=== PATIENT | male | born 1970 | race Caucasian/White ===

== ENCOUNTER 2018-12-27 02:12 | Emergency (ER) | payer OTHER ==
[2018-12-27 02:18] VITALS: RESP 16; TEMP 98.2
--- NOTE | 2018-12-27 03:13 | XR ---
EXAM: XR Left Ankle Complete, 3 or More Views CLINICAL HISTORY: ITS.REASON XR Reason: Pain TECHNIQUE: Frontal, lateral and oblique views of the left ankle. COMPARISON: No relevant prior studies available. IMPRESSION: Ankle joint is intact. Tibia, fibula, and talus is intact. Comminuted fracture of the Calcaneus.
--- NOTE | 2018-12-27 03:14 | XR ---
EXAM: XR Left Foot Complete, 3 or More Views CLINICAL HISTORY: ITS.REASON XR Reason: Pain TECHNIQUE: Frontal, lateral and oblique views of the left foot. COMPARISON: No relevant prior studies available. IMPRESSION: Comminuted fracture of the calcaneus.
[2018-12-27] MEDS ORDERED: MORPHINE SULFATE 4 MG/ML SYRINGE IM STA (03:20)
[2018-12-27 03:30] VITALS: PULSE 71
--- NOTE | 2018-12-27 04:07 | ED ---
Lower Extremity Injury HPI - General Source: patient, EMS Mode of arrival: EMS Limitations: no limitations <Lulu Mobley - Last Filed: 12/27/18 04:57> <Seema Mendoza - Last Filed: 12/27/18 06:41> - General Chief Complaint: Extremity Injury, Lower Stated Complaint: Foot Injury Time Seen by Provider: 12/27/18 02:26 - History of Present Illness Initial Comments: 48-year-old male who denies past medical history presenting today for chief complaint of left heel pain. Patient states he was diagnosed a day ago with a calcaneus fracture. He states he jumped from a 12 foot ladder landing on his feet. Patient states that they did obtain x-rays of his lower back at the emergency department, he states that he was not told there was any abnormalities. Patient states he has increasing pain in his left heel. He states he was given a prescription for [place] 5 and told to follow-up with oral surgery after being placed in a splint and told to nonweight bear. Patient has crutches and room. Patient denies any numbness to the loss sensation. Patient does admit to left foot swelling. Patient has bulky Bradshaw splint in place. Patient presented today for increasing left foot pain. Remaining review of systems negative, patient denies any recent fever, chills, shortness of breath, chest pain, , abdominal pain, nausea or vomiting, numbness or tingling, dysuria or hematuria, constipation or diarrhea, headaches or visual changes, or any other complaints. (Lulu Mobley) - Related Data Previous Rx's Medication Instructions Recorded HYDROcodone/APAP 7.5-325MG [[place] 1 tab PO Q6HR PRN 3 Days #12 tab 12/27/18 7.5-325] Allergies Allergy/AdvReac Type Severity Reaction Status Date / Time No Known Allergies Allergy Verified 12/27/18 02:36 Review of Systems ROS Other: All systems not noted in ROS Statement are negative. <Lulu Mobley - Last Filed: 12/27/18 04:57> ROS Other: All systems not noted in ROS Statement are negative. <Seema Mendoza - Last Filed: 12/27/18 06:41> ROS Statement: Those systems with pertinent positive or pertinent negative responses have been documented in the HPI. Past Medical History History of Any Multi-Drug Resistant Organisms: None Reported Past Surgical History: Appendectomy, Hernia Repair Additional Past Surgical History / Comment(s): vasectomy Smoking Status: Current every day smoker Past Alcohol Use History: None Reported Past Drug Use History: Marijuana <Lulu Mobley - Last Filed: 12/27/18 04:57> General Exam Limitations: no limitations <Lulu Mobley L - Last Filed: 12/27/18 04:57> <MendozaBrendonSeema P - Last Filed: 12/27/18 06:41> - General Exam Comments Initial Comments: General: The patient is awake and alert, in no distress, and does not appear acutely ill. Eye: Pupils are equal, round and reactive to light, extra-ocular movements are intact. No nystagmus. There is normal conjunctiva bilaterally. No signs of icterus. Ears, nose, mouth and throat: There are moist mucous membranes and no oral lesions. Cardiovascular: There is a regular rate and rhythm. No murmur, rub or gallop is appreciated. Respiratory: Lungs are clear to auscultation, respirations are non-labored, breath sounds are equal. No wheezes, stridor, rales, or rhonchi. Musculoskeletal: Inspection of the left foot revealed swelling, compressible quadrants. Warm to palpation. Ecchymosis. Patient tender with palpation diffusely over left foot. +2 deep P pulses. Patient refuses to fully range at the left ankle secondary to pain, I did not stress this given known injury. She is able to wiggle all 5 digits of the left foot. Patient has full sensation in both proximal distal to injury. Capillary refill less than 2 seconds. No pain to palpation of the proximal tibia and fibula. No gross deformity. Neurological: A&O x 3. CN II-XII intact, There are no obvious motor or sensory deficits. Coordination appears grossly intact. Speech is normal. Skin: Skin is warm and dry and no rashes or lesions are noted. Psychiatric: Cooperative, appropriate mood & affect, normal judgment. (Lulu Mobley Les) Vital Signs 12/27/18 12/27/18 12/27/18 02:14 03:28 04:21 Temperature 98.2 F Pulse Rate 83 71 71 Respiratory 16 16 16 Rate Blood Pressure 117/89 141/82 135/79 O2 Sat by Pulse 97 100 100 Oximetry Medical Decision Making <Lulu Mobley - Last Filed: 12/27/18 04:57> <Seema Mendoza - Last Filed: 12/27/18 06:41> - Medical Decision Making Imaging studies were repeated, revealed comminuted calcaneus fracture. Patient neurovascularly intact. Compartments are soft and compressible. Imaging studies were reviewed by myself as well as attending provider Dr. Mendoza. At this time we do feel patient is stable for discharge with close orthopedic surgery follow-up in the next 24 hours. We instructed patient to continue to [id number], we gave him prescription for higher dose of [place] 7.5. Patient was instructed to elevate the left ankle as often as possible due to significant swelling experience in calcaneus fractures. We discussed palpitations of calcaneus fractures if not managed properly including chronic pain. Patient verbalized understanding. I did discuss the importance of close follow-up patient verbalized understanding. Return parameters were discussed at length with patient which included a numbness tingling or loss sensation pallor or coolness of the extremity. Patient also is instructed to return for any pain that he felt was out of proportion. Patient was understanding. Patient was given morphine. Patient states this helped mildly. At this time to feel patient stable for discharge, as does my attending provider. Patient was discharged. While using crutches. Patient was given orthopedic surgery follow-up with Dr. Conteh our foot an ankle specialist of on-call provider group. (Lulu Mobley) I was available for consultation in the emergency department. The history and physical exam were done by the midlevel provider. I was consulted for this patient's care. I reviewed the case with the midlevel provider and based on their presentation of the patient, I agree with the assessment, medical decision making and plan of care as documented. (Seema Mendoza) Disposition Is patient prescribed a controlled substance at d/c from ED?: Yes When asked, does pt state using other controlled substances?: Yes If prescribed controlled substance>3 days was MAPS reviewed?: Prescribed <3 Days If opioid is for acute pain is fill amount 7 days or less?: Yes If Rx opioid, was Start Talking consent form obtained?: Yes Time of Disposition: 04:07 <Lulu Mobley - Last Filed: 12/27/18 04:57> <Seema Mendoza P - Last Filed: 12/27/18 06:41> Clinical Impression: Calcaneus fracture, left Disposition: HOME SELF-CARE Condition: Good Instructions (If sedation given, give patient instructions): Calcaneal Fracture (ED) Additional Instructions: Please use medication as discussed. Please follow-up with orthopedic surgery in the next 24 hours, as discussed. NO WEIGHT BEARING. Please return to emergency room if the symptoms increase or worsen or for any other concerns. Prescriptions: HYDROcodone/APAP 7.5-325MG [[place] 7.5-325] 1 tab PO Q6HR PRN 3 Days #12 tab PRN Reason: Severe Pain Referrals: Vince Ervin DO [Primary Care Provider] - 1-2 days Giuliano Conteh MD [Medical Doctor] - 1-2 days
[2018-12-27 04:24] VITALS: BP 135/79
== END 2018-12-27 04:25 | disposition home or self-care (01) ==
LOC: EC 02:12
DX: S92.002A Unspecified fracture of left calcaneus, initial encounter for closed fracture (principal); F17.200 Nicotine dependence, unspecified, uncomplicated; W11.XXXA Fall on and from ladder, initial encounter
CPT/HCPCS: 96372; 99283

== ENCOUNTER 2022-08-03 20:06 | Emergency (ER) | payer OTHER ==
[2022-08-03 21:12] VITALS: BP 125/84; PULSE 73; RESP 16; TEMP 97.9
--- NOTE | 2022-08-03 22:58 | ED ---
Wound/Laceration HPI - General Chief Complaint: Wound/Laceration Stated Complaint: L hand lac Time Seen by Provider: 08/03/22 22:33 Source: patient Mode of arrival: ambulatory Limitations: no limitations - History of Present Illness Initial Comments: Patient is a 52-year-old male presenting with chief complaint of laceration to the left thumb. Patient was using a pocket knife at home and it slipped cutting his thumb. Patient's last tetanus was 3 years ago. He denies any numbness, tingling, loss of range of motion. - Related Data Previous Rx's Medication Instructions Recorded HYDROcodone/APAP 7.5-325MG [[place] 1 tab PO Q6HR PRN 3 Days #12 tab 12/27/18 7.5-325] Allergies Allergy/AdvReac Type Severity Reaction Status Date / Time No Known Allergies Allergy Verified 12/27/18 02:36 Review of Systems ROS Statement: Those systems with pertinent positive or pertinent negative responses have been documented in the HPI. ROS Other: All systems not noted in ROS Statement are negative. Past Medical History Past Medical History: No Reported History History of Any Multi-Drug Resistant Organisms: None Reported Past Surgical History: Appendectomy, Hernia Repair, Orthopedic Surgery Additional Past Surgical History / Comment(s): vasectomy Smoking Status: Current every day smoker Past Alcohol Use History: Occasional Past Drug Use History: Marijuana General Exam Limitations: no limitations General appearance: alert, in no apparent distress Head exam: Present: atraumatic, normocephalic, normal inspection Eye exam: Present: normal appearance, EOMI. Absent: scleral icterus, periorbital swelling Neck exam: Present: normal inspection Neurological exam: Present: alert, oriented X3, CN II-XII intact Psychiatric exam: Present: normal affect, normal mood Skin exam: Present: warm, dry, normal color. Absent: rash Expanded Type of lesion: Present: laceration (3cm left thumb) Course Vital Signs 08/03/22 21:09 Temperature 97.9 F Pulse Rate 73 Respiratory 16 Rate Blood Pressure 125/84 O2 Sat by Pulse 98 Oximetry Procedures - Laceration Laceration #1 Consent Obtained: verbal consent Indication: laceration Site: hand Size (cm): 3 Description: linear Depth: simple, single layer Anesthetic Used: lidocaine 1%, without epi Anesthesia Technique: local infiltration Amount (mls): 3 Pre-repair: wound explored, irrigated extensively Type of Sutures: nylon Size of Sutures: 4-0 Number of Sutures: 4 Technique: simple, interrupted Patient Tolerated Procedure: well Medical Decision Making - Medical Decision Making Patient is a 52-year-old male presenting with chief complaint of laceration to the left thumb sustained after using a pocketknife at home, the knife excellently slipped cutting him. Tetanus is up-to-date. Patient is having no numbness, tingling, loss of range of motion. Site was anesthetized using 1% lidocaine with local infiltration, wound was cleansed with 1 L sterile water. 4 simple erupted sutures were placed using 4-0 nylon. Educated on wound care, sutures may be removed in 10-14 days. Follow-up with PCP. Report back to ER with any new or worsening symptoms. Discussed return parameters and answered all questions. Patient conveyed verbal understanding and agreed to the plan. I discussed this case in detail with my attending Dr. De La Fuente Disposition Clinical Impression: Laceration Disposition: HOME SELF-CARE Condition: Good Instructions (If sedation given, give patient instructions): Care For Your Stitches (ED), Finger Laceration (ED) Additional Instructions: Follow-up with PCP. Report back to ER with any new or worsening symptoms. Keep the wound clean, dry, and covered. Gently cleanse with soap and water. Monitor for signs of infection, including but not limited to redness, swelling, tenderness, warmth, discharge, fever, chills. Sutures may be removed in 10-14 days, this can be done here at the ER, by your PCP, or a local urgent care. Is patient prescribed a controlled substance at d/c from ED?: No Referrals: None,Stated [Primary Care Provider] - 1-2 days Time of Disposition: 22:58
== END 2022-08-04 00:39 | disposition home or self-care (01) ==
LOC: EC 20:06
DX: S61.012A Laceration without foreign body of left thumb without damage to nail, initial encounter (principal); F17.200 Nicotine dependence, unspecified, uncomplicated; W26.0XXA Contact with knife, initial encounter; Y92.009 Unspecified place in unspecified non-institutional (private) residence as the place of occurrence of the external cause
CPT/HCPCS: 12002; 99282